=== PATIENT | male | born 1980 | race Hispanic/Latino ===

== ENCOUNTER 2018-11-27 16:09 | Emergency (ER) | payer SELFPAY ==
[~2018-11-27] VITALS: Ht 172.7 cm; Wt 77.2 kg
[2018-11-27] MEDS ORDERED: AMOXICILLIN500 MG PO (16:51)
[2018-11-27] MEDS ORDERED: PERCOCET 5/325M1 TAB PO (16:51)
[2018-11-27 16:55] VITALS: BP 161/99
== END 2018-11-27 16:55 | disposition home or self-care (01) | DRG 159 ==
LOC: ED 16:09
DX: K04.7 Periapical abscess without sinus (principal)